=== PATIENT | female | born 1960 | race Caucasian/White ===

== ENCOUNTER → 2017-02-10 | Day surgery (SDC) | payer OTHER, MEDICARE ==
[~2017-02-10] VITALS: Ht 160 cm; Wt 66.3 kg
[~2017-02-10] MED LIST: BACLOFEN10 MG PO; BUTRANS1 EAC1 TOP; CALCIUM600 MG PO; CARAFATE1 GM PO; CLARITIN10 MG PO; DESYREL100 MG PO; DRISDOL 5050000 UNIT PO; FOLIC ACID1 MG PO; MACRODANTIN *IA50 MG PO; NEURONTIN600 MG; NEURONTIN600 MG PO; NORCO 5-325 TA1 EACH PO; PEPCID20 MG PO; PROZAC40 MG PO; PUROXCIN 4%-1%1 EACH TOP; THERA-VITE W/ B1 TAB PO; THIAMINE HCL100 MG PO; VITAMIN B-121000 MCG PO
--- NOTE | ~2017-02-10 | OR ---
PATIENT'S NAME: MICHEL KHAN [facility] AGE: 56 Y [address] ROOM: [place] [address] LOCATION: [facility] ADMIT DATE: 02/10/2017 OR/Procedure Report DISCHARGE DATE: FAMILY PHYSICIAN: CHRISTINE CURRAN APRN ATTENDING PHYSICIAN: Clay Rapp SURGEON: Clay Rapp MD CHARGE MASTER SPECIALIST: DATE OF PROCEDURE: 02/10/2017 PREOPERATIVE DIAGNOSIS: Extensive bilateral nephrolithiasis with multiple bladder stones by CT scan. POSTOPERATIVE DIAGNOSIS: Extensive bilateral nephrolithiasis with multiple bladder stones by CT scan, with only one stone in the bladder. PROCEDURES PERFORMED: 1. Cystoscopy with extraction of bladder stone. 2. Bilateral ureteral stent placements. 3. Bilateral extracorporeal shock wave lithotripsy. ANESTHESIA: General. INDICATION: This is a 56-year-old lady with a long history of stone disease. I had followed her years ago. More recently, she had followed with Dr. Concepcion. He has left her area, and she saw me back in followup. She has not required an intervention for some time. However, she has had an interim gastric bypass which puts her at a higher risk. She has been having bilateral flank pain which radiates into the abdomen. She had a CT scan done. She has extensive upper tract stones. She has no obvious hydronephrosis or ureteral stones. She has a number of calcifications in her bladder. Her situation is complicated by her chronic pain symptoms. She has previous back surgery with hardware placement. She has had stimulators placed, some of that was for bladder control. With her symptoms and her CT findings, she presents for intervention. DESCRIPTION OF PROCEDURE: Having obtained her informed consent, the patient was taken first to the cystoscopy suite. She was prepped and draped sterilely and in lithotomy position. General anesthesia was administered. A rigid cystoscopy was undertaken. When we had reviewed her outside films, we queried why she would not pass a number of those small stones. Indeed, she has. She has one small stone remaining in her bladder. Because we have not had a stone analysis in some time and because she had the interim gastric bypass, I extracted that as it has obviously passed from the kidneys. Based on her symptoms, I suspect it was the left side. We will send that for analysis. PATIENT'S NAME: MICHEL KHAN [facility] AGE: 56 Y [address] ROOM: [place] [address] LOCATION: [facility] [place] ADMIT DATE: 02/10/2017 OR/Procedure Report DISCHARGE DATE: FAMILY PHYSICIAN: CHRISTINE CURRAN APRN ATTENDING PHYSICIAN: Clay Rapp In addition, because her pain symptoms were very difficult to sort out, we did not want to question whether or not she had dropped a fragment down. Therefore, I opted to place stents bilaterally in anticipation of her lithotripsy. She understood that. She understands it is very difficult to sort out her chronic back pain from her passage of stones. Under fluoroscopy, we could see the stones scattered over both renal shadows. I passed a guidewire up the right side. Over that, I passed a 4.8 Multi-Link stent. We had a nice level of placement cystoscopically and fluoroscopically. An identical stent placement was undertaken on the left side. The patient was now moved to the lithotripsy suite. She was placed onto the table. We targeted the left side first. The stones appeared to be soft and fragment nicely. We only turned the energy up to 16 kV. After 1600 impulses, I could not appreciate anything on the left. We re-positioned her to the right. Once again, we targeted the stones as we worked our way from the upper pole down. An additional 1400 impulses were administered. The patient tolerated the procedure well. Blood loss was negligible. The above-noted specimen was sent. The patient returned to the recovery area awake and in stable condition. CLAY RAPP MD [facility]/justin /[id number] CC: CHRISTINE CURRAN APRN d: 02/10/17 1902 t: 03/01/17 1259, OPERATIVE SUMMARY
== END | disposition disaster alternative care site (69) ==
LOC: GPOC 02-09 16:00 → GSDC 09:10
PROC: 0T788DZ Dilation of Bilateral Ureters with Intraluminal Device, Via Natural or Artificial Opening Endoscopic (ICD-10-PCS; principal; 2017-02-10)
PROC: 0TF4XZZ Fragmentation in Left Kidney Pelvis, External Approach (ICD-10-PCS; 2017-02-10)
PROC: 0TF3XZZ Fragmentation in Right Kidney Pelvis, External Approach (ICD-10-PCS; 2017-02-10)
DX: N20.0 Calculus of kidney (principal); N21.0 Calculus in bladder; E78.00 Pure hypercholesterolemia, unspecified; I10 Essential (primary) hypertension; G47.30 Sleep apnea, unspecified; M19.90 Unspecified osteoarthritis, unspecified site; M81.0 Age-related osteoporosis without current pathological fracture; F41.8 Other specified anxiety disorders; F31.9 Bipolar disorder, unspecified; Z98.890 Other specified postprocedural states; Z90.49 Acquired absence of other specified parts of digestive tract; Z91.041 Radiographic dye allergy status; Z88.1 Allergy status to other antibiotic agents; Z88.8 Allergy status to other drugs, medicaments and biological substances; Z91.048 Other nonmedicinal substance allergy status; Z79.899 Other long term (current) drug therapy
CPT/HCPCS: C1769; C2617; J1956; J2001; J2250; J7030